=== PATIENT | male | born 1965 | race Caucasian/White ===

== ENCOUNTER 2016-11-12 13:21 | Emergency (ER) | payer BC ==
[2016-11-12 13:47] VITALS: BP 154/82
--- OUTSIDE RECORDS SUMMARY | 2016-11-12 13:56 | XMS REPORT | Continuity of Care Document ---
:1965 Author Organization [facility] ([facility]) Address [address] [place] [address] Phone [phone] Care Team Providers Name Role Phone Samaria Thapa Primary Care Provider [phone] Source Comments This disclosure is being made pursuant to the Care Everywhere program, applicable federal and state laws, and may not contain all informaitonavailable regarding this patient.[facility] ([facility]) Active Allergies and Adverse Reactions No Known Allergies Current Medications Prescription Sig. Disp. Refills Start Date End Date Status enalapril 20 mg tablet Take 2 tablets Active daily omeprazole 20 mg Take 20 mg by Active enteric coated capsule mouth daily warfarin 5 mg tablet Take 5 mg by Active mouth daily. omega-3 fatty acids 1 Take 2 g by mouth Active gram capsule 2 times daily. metoPROLol (TOPROL XL) Take 1 tablet 90 tablet 3 08/20/2016 Active succinate 200 mg XL (200 mg total) by tablet mouth daily. Active Problems Problem Noted Date Aortic stenosis 05/07/2015 Aortic insufficiency 05/07/2015 Paroxysmal atrial fibrillation 03/30/2015 Essential hypertension 03/30/2015 Most Recent Encounters Date Type Specialty Providers Description 08/20/2016 Refill Cardiac Rehabilitation Sunil Jara, Dx: Paroxysmal atrial MD fibrillation (Primary Dx) 08/20/2016 Refill Cardiac Rehabilitation Sunil Jara Dx: Paroxysmal atrial MD fibrillation (Primary Dx) Immunizations Name Dates Previously Given Next Due Influenza, unspecified 10/06/2006 Social History Tobacco Use Types Packs/Day Years Used Date Never Smoker Smokeless Tobacco: Former User Chew Quit: 02/08/2010 Alcohol Use Drinks/Week oz/Week Comments Yes 20 Cans of beer 0.0 25 Standard drinks or equivalent Last Filed Vital Signs Vital Sign Reading Time Taken Blood Pressure 143/81 07/08/2016 1:39 PM [employer] Pulse 57 07/08/2016 1:39 PM [employer] Temperature 36.2 C (97.16 F) 10/06/2006 7:50 AM [employer]ER Respiratory Rate - - Height 1.88 m (6' 2.02") 06/30/2016 12:00 PM [employer] Weight 114.76 kg (253 lb) 06/30/2016 12:00 PM [employer] Body Mass Index 32.47 06/30/2016 12:00 PM [employer] Oxygen Saturation 98% 02/13/2016 3:20 PM CDT Plan of Care Date Type Specialty Providers Description 01/10/2017 Appointment Heart and Vascular Joseph Arroyo MD [address] [place] [address] [phone] (Fax) Chief Comp: Patient Bart Goddard MD [address] [place] [address] [phone] (Fax) Reported Reason For Visit Health Maintenance Due Date Last Done Comments HCV Screening 1965 Hepatitis B Vaccine (1 of 3 - Primary Series) 1965 Tdap Vaccine 1974 MMR Vaccine 1981 Td Vaccine 1981 Lipid Disorder Screening 11/02/2007 11/01/2002 Colonoscopy 09/22/2013 Prostate Cancer Screening 2013 Influenza Vaccine: Seasonal (#1) 03/22/2016 10/06/2006 Results from Last 3 Months Not on file
[2016-11-12 14:13] LABS: Hematocrit 41.7 % (42.0-52.0); Hemoglobin 14.7 gm/dL (13.5-18.0); Mean Cell Volume 81.1 fl (78-100); Mean Corpuscular Hemoglobin 28.6 pg (27-31); Mean Corpuscular Hgb Conc 35.3 g/dl (32-36); Mean Platelet Volume 10.3 fl (6.0-9.5); Neutrophil # 3.1 K/mm3 (1.3-6.0); Neutrophil % 57.9 % (42-75.0); Platelet Count 136 K/mm3 (150-450); Red Blood Count 5.14 M/mm3 (4.7-6.0); Red Cell Distribution Width 12.7 % (11.5-14.0); White Blood Count 5.3 K/mm3 (4.0-10.5)
--- NOTE | 2016-11-12 14:23 | ERNOTE ---
Lower Extremity HPI - General Lower Extremities Pain: foot: right Time Seen by Provider: 11/12/16 13:32 Source: patient Exam Limitations: no limitations - Immun/Allergies/Home Medications Immunizations: IMMUNIZATION HX Immunizations Up to Date Yes History of Influenza Vaccine Yes Hx Pneumococcal Vaccination No Allergies/Adverse Reactions: Allergies Allergy/AdvReac Type Severity Reaction Status Date / Time No Known Allergies Allergy Verified 11/12/16 13:48 Home Medications: HOME MEDICATIONS Enalapril Maleate [Vasotec] 40 mg PO DAILY 10/10/12 [Last Taken 04/22/13 09:00] [place]-3 Fatty Acids [Fish Oil] 500 mg PO DAILY 02/06/13 [Last Taken 04/22/13 09: 00] Warfarin Sodium [Coumadin] 7.5 mg PO SUMOTUTHFRSA 05/19/16 [Last Taken Unknown] metFORMIN HCL [Glucophage] 500 mg PO BIDWM 05/19/16 [Last Taken Unknown] Apremilast [Otezla] 30 mg PO DAILY 11/12/16 [Last Taken Unknown] Aspirin [Aspirin EC] 81 mg PO DAILY 11/12/16 [Last Taken Unknown] Indomethacin [Indocin] 25 mg PO TID 11/12/16 [Last Taken Unknown] Metoprolol Succinate 200 mg PO DAILY 11/12/16 [Last Taken Unknown] Omeprazole Magnesium [Prilosec Otc] 20 mg PO DAILY 11/12/16 [Last Taken Unknown] Tamsulosin HCl [Flomax] 1 cap PO DAILY 11/12/16 [Last Taken Unknown] - History of Present Illness Narrative: Patient started to have pain in his right lateral foot six days ago. He denies any injury, the pain is minimal at rest, worse with weight bearing (5/10) worst after resting at night. He denies any injury or increase in activity. He has a history of gout and started himself back on his indomethacin five days ago with only minimal relieve. Pain is better when he is wearing his work boots, worse when wearing sandals or going barefoot He has episodes of atrial fibrillation, last one in April,was off coumadin since August, he started to have an episode five days ago that lasted about 30hours. He restarted his coumadin five days ago, has not had his INR checked since. He has a history of diabetes, lost 30lbs over the last year Date (Duration): 11/06/16 Method of Injury: Reports: no apparent injury Review of Systems - Review of Systems Constitutional: Absent: recent illness, fever, chills ENT: Present: nose congestion, nasal drainage. Absent: ear pain, sore throat, throat swelling Respiratory: Absent: shortness of breath, cough Cardiology: Absent: chest pain, palpitations Gastrointestinal/Abdominal: Absent: nausea, vomiting, abdominal pain Genitourinary: Absent: frequency, dysuria Musculoskeletal: Present: See HPI Skin: Present: See HPI Neurological: Absent: weakness, numbness - Patient's Past Medical History Patient History - Medical: No pertinent hx, Diabetes Type 2, Other - gout Patient History - Cardiac/Respiratory: Atrial Fibrillation, Hypertension Patient History - Cancer: No Hx of Cancer Patient History - Surgical Procedures: T & A Patient History - Other: None - Social History Living Situations: home Abuse History: No History of abuse Psych History: No pertinent hx Smoking Status: Never smoker Alcohol Use: occasionally - 4drinks per night Drug Use: none - Immunizations Immunizations Up to Date: Yes Hx Pneumococcal Vaccination: No History of Influenza Vaccine: Yes Physical Exam - Physical Exam General Appearance: Present: wd/wn, alert, no apparent distress Respiratory: Present: no respiratory distress, normal breath sounds, lungs clear Cardiovascular/Chest: Present: regular rate, rhythm, no murmur Peripheral Pulses: N=norm/S=strong/W=weak/B=bound/A=absent: Dorsalis-pedis (R): Normal, Dorsalis-pedis (L): Normal Extremity Exam: Present: normal except - - generalized swelling of foot, most prominent and erythema over lateral foot, slightly tender, no increased temp, normal toe, pedal edema, other - right leg edema, right calf circumference 2cm> left. Absent: calf tenderness Neurological Exam: Present: alert, oriented, normal mood/affect, no motor/ sensory deficits Skin Exam: Present: normal color, warm/dry ED Progress - Results and Orders Patient's Lab Results:: I have reviewed the patient's lab results. - Vital Signs Patient's Vital Signs:: I have reviewed the patient's vital signs. Vital Signs: Vital Signs 11/12/16 13:33 Temperature 36.7 C Pulse Rate 57 L Respiratory 16 Rate Blood Pressure 154/82 O2 Sat by Pulse 96 Oximetry - X-Ray X-Ray #1 X-Ray: foot - no acute bony injury Interpretation: Reviewed by me - CT/Ultrasound CT/Ultrasound Narrative: U/S: no DVT, blandon's cust - Progress/Reassessment Progress Note-Subjective: 11/12/16 15:11 explained results to patient, will get doppler to evaluate for DVT as patient just started cumadin a few days ago 11/12/16 16:05 discussed results with patients, gout unlikely, no obvious fracture, consider occult fracture,offered pain medication patient will continue with over the counter meds (discussed to not take NSAIDs with coumadin) feels better with wearing supportive shoes 11/12/16 16:10 call to ortho clinic, francis Departure Clinical Impression: Foot pain, right Atrial fibrillation Qualifiers: Atrial fibrillation type: paroxysmal Qualified Code(s): I48.0 - Paroxysmal atrial fibrillation Blandon's cyst Qualifiers: Laterality: right Qualified Code(s): M71.21 - Synovial cyst of popliteal space [Blandon], right knee - Departure Disposition: Home self-care Condition: Good Instructions: Foot Sprain Referrals: Samaria Thapa MD [Primary Care Provider] - Ramakrishna Ramachandran PAC [[facility]] - 11/18/16 9:15 am
[2016-11-12 14:28] LABS: Albumin * 3.6 gm/dl (3.4-5.0); Anion Gap 13.7 mmol/L (6.8-13.8); BUN/Creatinine Ratio 16.5 (9.0-21.6); Bilirubin, Total 0.3 mg/dL (0.0-1.1); Ca. Corrected For Albumin 8.9 mg/dL (8.4-10.2); Calcium * 8.9 mg/dL (7.9-10.9); Carbon Dioxide 26.2 mmol/L (24-32.6); Potassium 3.9 mmol/L (3.4-4.6); Total Protein 7.5 gm/dL (6.2-8.2)
[2016-11-12 14:31] LABS: Prothrombin Time (Patient) 25.9 Seconds (9.4-11.4)
[2016-11-12 14:32] LABS: INR 2.49 INR (0.90-1.10)
== END 2016-11-12 16:17 | disposition home or self-care (01) ==
LOC: ER 13:21
DX: M71.21 Synovial cyst of popliteal space [Baker], right knee (principal); M79.671 Pain in right foot; I48.0 Paroxysmal atrial fibrillation; Z79.01 Long term (current) use of anticoagulants; E11.9 Type 2 diabetes mellitus without complications; I10 Essential (primary) hypertension

== ENCOUNTER 2017-01-21 10:05 | Inpatient (IN) | payer BC ==
--- OUTSIDE RECORDS SUMMARY | 2017-01-21 10:11 | XMS REPORT | Continuity of Care Document ---
:1965 Author Organization [facility] ([facility]) Address [address] [place] [address] Phone [phone] Care Team Providers Name Role Phone Samaria Thapa Primary Care Provider [phone] Source Comments This disclosure is being made pursuant to the Care Everywhere program, applicable federal and state laws, and may not contain all informaitonavailable regarding this patient.[facility] ([facility]) Active Allergies and Adverse Reactions No Known [...] (200 mg total) by tablet mouth daily. metoPROLol tartrate Take 1 tablet 180 tablet 3 01/11/2017 Active 100 mg tablet (100 mg total) by mouth 2 times daily. Active Problems Problem Noted Date Aortic stenosis 05/07/2015 Aortic insufficiency 05/07/2015 Paroxysmal atrial fibrillation 03/30/2015 Essential hypertension 03/30/2015 Most Recent Encounters Date Type Specialty Providers Description 01/10/2017 Office Visit Heart and Vascular Joseph Arroyo MD Dx: Paroxysmal atrial Bart Goddard MD fibrillation (Primary Dx) 01/07/2017 Telephone Heart and Vascular Inna Odell Immunizations Name Dates Previously Given Next Due Influenza, unspecified 10/06/2006 Social History Tobacco Use Types Packs/Day Years Used Date Never Smoker Smokeless Tobacco: Former User Chew Quit: 02/08/2010 Alcohol Use Drinks/Week oz/Week Comments Yes 20 Cans of beer 0.0 25 Standard drinks or equivalent Last Filed Vital Signs Vital Sign Reading Time Taken Blood Pressure 143/79 01/10/2017 1:25 PM CDT Pulse 53 01/10/2017 1:25 PM CDT Temperature 36.8 C (98.2 F) 01/10/2017 1:25 PM CDT Respiratory Rate 16 01/10/2017 1:25 PM CDT Height 1.88 m (6' 2.02") 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 Weight 109.3 kg (240 lb 15.4 oz) 01/10/2017 1:25 PM CDT Body Mass Index 30.92 01/10/2017 1:25 PM CDT Oxygen Saturation 98% 01/10/2017 1:25 PM CDT Plan of Care Date Type Specialty Providers Description 07/18/2017 Appointment Heart and Vascular Bart Goddard MD Chief Comp: Patient [address] [place] [address] Visit [phone] (Fax) Health Maintenance Due Date Last Done Comments HCV Screening 1965 Hepatitis B Vaccine (1 of 3 - Primary Series) 1965 Tdap Vaccine 1974 MMR Vaccine 1981 Td Vaccine 1981 Lipid Disorder Screening 11/02/2007 11/01/2002 Colonoscopy 09/22/2013 Prostate Cancer Screening 2013 Influenza Vaccine: Seasonal (Season Ended) 2017 10/06/2006 Results from Last 3 Months ECG - EKG 12 LEAD (01/10/2017 1:29 PM) Component Value Range ECG SEVERITY - ABNORMAL ECG - VENT. RATE 51 bpm RR 1176 ms P-R INTERVAL 172 ms QRSD INTERVAL 114 ms QT INTERVAL 444 ms QTC INTERVAL 409 ms P AXIS 22 degrees QRS AXIS 7 degrees T WAVE AXIS 23 degrees REPORT SINUS RHYTHM [Remains] NONSPECIFIC INTRAVENTRICULAR CONDUCTION DELAY [Insig. Chg.] NO SIGNIFICANT CHANGE MINIMAL ST ELEVATION, ANTERIOR LEADS [Remains] [Now Absent] PROBABLE LATERAL INFARCT, OLD Interpreting Physician: Angel Key MD
[2017-01-21 10:28] LABS: Hematocrit 43.4 % (42.0-52.0); Hemoglobin 15.2 gm/dL (13.5-18.0); Mean Cell Volume 81.6 fl (78-100); Mean Corpuscular Hemoglobin 28.6 pg (27-31); Mean Platelet Volume 10.2 fl (6.0-9.5); Neutrophil # 7.9 K/mm3 (1.3-6.0); Platelet Count 140 K/mm3 (150-450); Red Blood Count 5.32 M/mm3 (4.7-6.0); Red Cell Distribution Width 13.6 % (11.5-14.0); White Blood Count 10.2 K/mm3 (4.0-10.5)
[2017-01-21] MEDS ORDERED: VANCOMYCIN HCL 1 GM in DEXTROSE 5 % IN WATER 250 ML IV SCH ×2 (10:30)
[2017-01-21 10:42] LABS: Albumin * 3.7 gm/dl (3.4-5.0); Anion Gap 14.4 mmol/L (6.8-13.8); BUN/Creatinine Ratio 17.5 (9.0-21.6); Bilirubin, Total 1.2 mg/dL (0.0-1.1); CRP 7.7 mg/dL (0.0-0.9); Ca. Corrected For Albumin 9.4 mg/dL (8.4-10.2); Calcium * 9.5 mg/dL (7.9-10.9); Carbon Dioxide 26.2 mmol/L (24-32.6); INR 3.65 INR (0.90-1.10); Potassium 4.6 mmol/L (3.4-4.6); Total Protein 7.8 gm/dL (6.2-8.2); Uric Acid 6.7 mg/dL (2.6-7.2)
[2017-01-21] MEDS ORDERED: COLCHICINE 0.6 MG TABLET PO ONE ×2 (11:30→12:30)
--- NOTE | 2017-01-21 12:11 | CONS ---
- Reason for consultation (1) Foot pain, right Date of Service: 01/21/17 HPI - General Date of Service: 01/21/17 Narrative: 51-year-old male presents with complaints of increasing pain and swelling redness to his right foot as well as pain into his right knee. Patient has been seen in the past with history of cellulitis to his right foot. He tried on 2-3 different oral antibiotics with minimal effectiveness. Patient states that his pain became much worse into his right foot to the point where "even a sheet touching it hurt". Patient has a known history of gout however states that he has not had problems with this for a lengthy period of time. He does not take any sort of uric acid medication. Services please had a flare in the past he has taken indomethacin with good relief. Patient states his right knee began hurting. A diffuse pain. He has pain with range of motion. Denies any specific injury to his right knee. Slight effusion. Patient denies known fever chills. No history of injury to his right foot. He reports he is currently on anticoagulant therapy so is unable to take NSAIDs. He states it while he is on the oral antibiotics he will have some mild decrease in the pain however he states the pain has never gone completely away as well as he is no increasing and persistent redness. Returns for increasing cellulitis was admitted for observation and IV antibiotics per Dr. Clinton. - History of Present Illness Allergies/Adverse Reactions: Allergies No Known Allergies Allergy (Verified 11/12/16 13:48) Home Medications: Home Medications Medication Instructions Recorded Last Taken Enalapril Maleate [Vasotec] 40 mg PO DAILY 10/10/12 04/22/13 09:00 [place]-3 Fatty Acids [Fish Oil] 500 mg PO DAILY 02/06/13 04/22/13 09:00 Warfarin Sodium [Coumadin] 7.5 mg PO SUMOTUTHFRSA 05/19/16 Unknown metFORMIN HCL [Glucophage] 500 mg PO BIDWM 05/19/16 Unknown Apremilast [Otezla] 30 mg PO DAILY 11/12/16 Unknown Aspirin [Aspirin EC] 81 mg PO DAILY 11/12/16 Unknown Indomethacin [Indocin] 25 mg PO TID 11/12/16 Unknown Metoprolol Succinate 200 mg PO DAILY 11/12/16 Unknown Omeprazole Magnesium [Prilosec Otc] 20 mg PO DAILY 11/12/16 Unknown Tamsulosin HCl [Flomax] 1 cap PO DAILY 11/12/16 Unknown - Patient's Past Medical History Patient History - Medical: No pertinent hx, Diabetes Type 2, Other Patient History - Cardiac/Respiratory: Atrial Fibrillation, Hypertension Patient History - Cancer: No Hx of Cancer Patient History - Surgical Procedures: T & A Patient History - Other: None - Social History Living Situations: home Abuse History: No History of abuse Psych History: No pertinent hx Alcohol Use: occasionally Drug Use: none - Immunizations Immunizations Up to Date: Yes Hx Pneumococcal Vaccination: No History of Influenza Vaccine: Yes Procedures COLONOSCOPY (10/26/05) LINEAR REP LID LACER (09/30/01) Physical Examination - Exam Narrative: Examination today of the right foot reveals very diffuse redness noted. There is no localizing areas of redness no areas of fluctuance noted. There is increasing redness noted about the first MTP joint she has increasing pain with movement of this joint. She does have diffuse tenderness to palpation about the entire ankle. Not appreciate any ascending lymphangitis. Good dorsalis pedis posterior tibial pulse and has normal light touch sensation. I do not see any open sores or wounds to the right foot or ankle. There is no evidence of skin breakdown Examination today of the right knee reveals no erythema, no effusion, was tenderness to palpation. Patient has pain with any palpation to the knee patient has pain with any range of motion to the knee. His calf is soft nontender. Homans is negative due to pain to the knee was unable to complete any additional testing due to the patient guarding with motion. Vital Signs: Vital Signs - Last Taken Temp 36.7 C 11/12/16 16:22 Pulse Resp BP 154/82 11/12/16 16:22 Pulse Ox - Results and Findings: Lab/Microbiology results last 24 hrs: Abnormal/Pending Laboratory Last 24 HRS 01/21/17 01/21/17 01/21/17 10:20 10:20 10:20 Plt Count 140 L MPV 10.2 H Immature Gran % (Auto) 0.50 H Immature Gran # (Auto) 0.05 H Neutrophils % 77.0 H Lymphocytes % 13.1 L Neutrophils # 7.9 H Lymphocytes # 1.3 L ESR 17 H PT INR (Anticoag Therapy) Chloride 96 L Anion Gap 14.4 H Random Glucose 122 H Total Bilirubin 1.2 H C-Reactive Prot, Quant 7.7 H 01/21/17 10:20 Plt Count MPV Immature Gran % (Auto) Immature Gran # (Auto) Neutrophils % Lymphocytes % Neutrophils # Lymphocytes # ESR PT 38.0 H INR (Anticoag Therapy) 3.65 H Chloride Anion Gap Random Glucose Total Bilirubin C-Reactive Prot, Quant - Assessments/Findings (1) Foot pain, right Diagnosis(s): Concern for cellulitis versus gout. I would also have concern for his right knee being consistent with a gout flare. His uric acid level is normal however his history and exam is consistent with a gout flare. Dr. Jojo Laguerre is managing the patient with IV antibiotics he advised me that he will be starting colchicine since the patient is unable to take NSAIDs during his anticoagulation we will see how patient responds to this treatment. Be available for additional help as needed Problem: Acute
[2017-01-21] MEDS: MEROPENEM 1 GM in NORMAL SALINE 100 ML IV SCH ×2 (13:29→18:45)
[2017-01-21] MEDS: traMADol HCL 50 MG TABLET PO PRN (13:32)
[2017-01-21] MEDS ORDERED: MORPHINE SULFATE 10 MG/ML SYRG IV PRN (13:37)
[2017-01-21] MEDS: VANCOMYCIN HCL 2 GM in DEXTROSE 5 % IN WATER 500 ML IV SCH ×2 (13:59)
[2017-01-21] MEDS ORDERED: BELLADONNA ALKALOIDS/PHENOBARB 60 ML BTL PO ONE (17:19)
[2017-01-21] MEDS ORDERED: MAG HYDROX/ALUMINUM HYD/SIMETH 30 ML UDC PO ONE (17:19)
[2017-01-21] MEDS ORDERED: LIDOCAINE HCL 20 ML UDC PO ONE (17:19)
[2017-01-21] MEDS: metFORMIN HCL 500 MG TABLET PO SCH (17:33)
[2017-01-21] MEDS: TAMSULOSIN HCL 0.4 MG CAP.SR.24H PO SCH (17:53)
[2017-01-21 17:58] LABS: CK Total * 99 U/L (0-259); CKMB 0.6 ng/mL (0.0-9.0); Troponin I Less than 0.017 ng/ml (0.00-0.10)
[2017-01-22] MEDS: VANCOMYCIN HCL 2 GM in DEXTROSE 5 % IN WATER 500 ML IV SCH ×4 (01:20→12:33)
[2017-01-22] MEDS: MEROPENEM 1 GM in NORMAL SALINE 100 ML IV SCH ×2 (03:27→11:01)
[2017-01-22 05:41] LABS: Hemoglobin 14.6 gm/dL (13.5-18.0); Mean Cell Volume 82.2 fl (78-100); Mean Corpuscular Hemoglobin 28.6 pg (27-31); Mean Corpuscular Hgb Conc 34.8 g/dl (32-36); Mean Platelet Volume 10.5 fl (6.0-9.5); Neutrophil # 5.5 K/mm3 (1.3-6.0); Neutrophil % 65.2 % (42-75.0); Platelet Count 123 K/mm3 (150-450); Red Blood Count 5.11 M/mm3 (4.7-6.0); Red Cell Distribution Width 13.3 % (11.5-14.0); White Blood Count 8.4 K/mm3 (4.0-10.5)
[2017-01-22 05:50] LABS: Prothrombin Time (Patient) 29.8 Seconds (9.4-11.4)
[2017-01-22 05:52] LABS: Anion Gap 12.6 mmol/L (6.8-13.8); BUN/Creatinine Ratio 14.3 (9.0-21.6); Calcium * 9.2 mg/dL (7.9-10.9); Carbon Dioxide 28.4 mmol/L (24-32.6); Estimated Creat Clear 101.4
[2017-01-22 05:54] LABS: INR 2.87 INR (0.90-1.10)
[2017-01-22] MEDS: traMADol HCL 50 MG TABLET PO PRN ×2 (06:53→17:16)
[2017-01-22] MEDS ORDERED: PANTOPRAZOLE SODIUM 20 MG TABLET.DR PO SCH (07:00)
[2017-01-22] MEDS: metFORMIN HCL 500 MG TABLET PO SCH (08:25)
[2017-01-22] MEDS: COLCHICINE 0.6 MG TABLET PO SCH (08:25)
[2017-01-22] MEDS: ENALAPRIL MALEATE 20 MG TABLET PO SCH (08:26)
[2017-01-22] MEDS ORDERED: METOPROLOL SUCCINATE 100 MG TABLET.SA PO SCH (09:00)
--- NOTE | 2017-01-22 10:16 | PN ---
Progess Note - Interim Narrative: 01/22/17 10:08 Patient complaining of worsening R knee pain today. States that his lateral foot and knee hurt the most. He denies ankle pain at this time. Denies fevers/ chills. Exam: MSK: RLE--> tense effusion of knee, extremely tender to touch diffusely, pain with passive motion, no significant warmth or erythema appreciated, diffuse swelling and erythema of the lateral forefoot, swelling extending up around ankle, tender to touch over 4th and 5th metatarsals, no tenderness about ankle, no pain with passive motion of ankle, SILT, cap refill brisk Imaging: MRI of foot and ankle reviewed, which demonstrates diffuse soft tissue edema as well bony edema of the 4th and 5th metatarsals, consistent with severe cellulitis, possible early osteomyelitis but not convinced, effusion and edema of 1st MTP joint Assessment: Patient's exam and imaging of his foot and ankle are consistent with severe cellulitis. I'm not convinced that the bony edema is osteomyelitis but more likely reactive edema from the surrounding cellulitis. He does have an ankle effusion, but has no pain with ankle motion. The patient has a very painful, tense effusion of the R knee which is concerning for gouty flare vs septic arthritis. In summary, the patient has significant cellulitis of the foot. His multiple joint effusions are concerning for possible concomitant gout flare vs septic arthritis. Plan: - We will proceed with aspiration of the knee and ankle to rule out septic arthritis. Will send for cell count, gram stain, cultures, and crystal analysis. Patient has already been started on abx, so cultures may not grow anything. - Recommend continued medical treatment with IV abx for R foot cellulitis and possible osteomyelitis of the 4th and 5th metatarsals.
[2017-01-22] MEDS: LACTOBACILLUS ACIDOPHILUS 100 CAP BTL PO SCH ×2 (11:00→20:35)
[2017-01-22 12:13] LABS: Body Fluid Appearance BLOODY (CLEAR); Body Fluid Color RED (COLORLESS)
[2017-01-22 12:14] LABS: Body Fluid WBC 46970 /uL (0-1000)
[2017-01-22 12:17] LABS: Body Fluid Appearance CLEAR (CLEAR); Body Fluid Color PALE YELLOW (COLORLESS); Body Fluid WBC 4510 /uL (0-1000)
--- NOTE | 2017-01-22 12:49 | PN ---
Subjective - Date and Time Seen Date: 01/22/17 Time: 08:15 Subjective Narrative: Patient seen and examined at bedside. No acute issues overnight. Patient admits to improved swelling in his right foot and he also admits that the pain in his right foot has improved as well. The patient's biggest complaint this morning is of right knee pain. No BM since admission. Objective - Review of Systems Generalized/Overall Review: Reports: No Symptoms Reported. Denies: Chills, Fever EENTM: Reports: No Symptoms Reported Respiratory: Reports: No Symptoms Reported Cardiac: Reports: No Symptoms Reported Abdominal: Reports: Other - heartburn, constipation Genitourinary Symptoms: Reports: No Symptoms Reported Musculoskeletal Complaints: Reports: Joint Pain, Joint Swelling Neurological: Reports: No Symptoms Reported Skin: Reports: No Symptoms Reported Endocrine: Reports: No Symptoms Reported Misc: All systems neg except as marked - Vitals Vitals: Last Vital Signs Temp 37.1 C 01/22/17 11:08 Pulse 55 L 01/22/17 11:08 Resp 14 01/22/17 11:08 BP 121/62 01/22/17 11:08 Pulse Ox 97 01/22/17 11:08 - Abnormal Lab Findings Abnormal Lab Findings: Abnormal Lab Results 01/21/17 01/22/17 01/22/17 Range/Units 10:20 05:35 05:35 Plt Count 123 L (150-450) K/mm3 MPV 10.5 H (6.0-9.5) fl Lymphocytes % 19.2 L (20-51) % Monocytes % 13.1 H (0.0-9) % Monocytes # 1.1 H (0.0-1.0) k/mm3 PT 38.0 H 29.8 H (9.4-11.4) Seconds INR (Anticoag Therapy) 3.65 H 2.87 H (0.90-1.10) INR Random Glucose (70-110) mg/dL Fluid WBC (0-1000) /uL 01/22/17 01/22/17 01/22/17 Range/Units 05:35 10:43 10:44 Plt Count (150-450) K/mm3 MPV (6.0-9.5) fl Lymphocytes % (20-51) % Monocytes % (0.0-9) % Monocytes # (0.0-1.0) k/mm3 PT (9.4-11.4) Seconds INR (Anticoag Therapy) (0.90-1.10) INR Random Glucose 116 H (70-110) mg/dL Fluid WBC 4510 H 43056 H (0-1000) /uL - Exam Constitutional: Present: Alert, Oriented x3, Cooperative, Well developed, Well nourished, No distress ENT Exam: Present: hearing grossly normal, moist mucous membranes Respiratory: Present: lungs clear, normal breath sounds, no respiratory distress , no accessory muscle use Cardiovascular/Chest: Present: regular rate, rhythm, no murmur Abdomen: Present: soft, nontender, nondistended, hypoactive Extremity: Present: other - Right knee: effusion present, no errythema, TTP, decreased ROM secondary to pain. Right leg and foot: edema, errythema, TTP ( especially over lateral aspect of foot), no open wounds, no active drainage Skin Exam: Present: no cyanosis, other - Mild erythema of right foot and lower leg Neurologic: Present: no motor/sensory deficits, alert, normal mood/affect, oriented x 3 Appearance: Present: appropriate appearance, appropriate insight, neat, no memory impairment Eye contact: Present: cooperative, good eye contact, normal speech Thoughts: Present: normal thought pattern, no apparent hallucination Assessment/Plan Plan Narrative: Impression & Plan: Right lower extremity cellulitis -Ortho consulted and following. Appreciate their input and recommendations. Case discussed with Dr. Yancey this morning and I discussed whether or not he would feel a joint aspiration is indicated in an attempt to help identify the true etiology- gout vs. pseudogout vs. septic arthritis. Dr. Yancey will come and evaluate the patient. -For now, continue current IV antibiotics. Await Dr. Jimenez input. Hopefully we can quickly de-escalate the antibiotics within the next 1-2 days. -Blood cultures X 2 NGTD -Start probiotic CHRONIC MEDICAL CONDITIONS: Essential hypertension: Goal blood pressure less than 140/90mmHg. Blood pressure currently well controlled. Continue home medications of Enalapril and Metoprolol Paroxysmal atrial fibrillation: Currently in normal sinus rhythm. Continue metoprolol for rate control. Continue warfarin; goal INR 2-3 with pharmacy to dose. Based on clinic records, it appears that heavy alcohol use has been a significant trigger in the past. He has decreased his alcohol consumption and he has not had any known episodes of atrial fibrillation since October 2016. The patient was seen by an EP sales account leader on 01/10/2017 and after reviewing this office note, the patient had been changed from metoprolol succinate 200 mg daily to 100 mg BID due to the patients complaint of fatigue. I have adjusted his inpatient medication order to reflect this change. The patients CHADS2 Score is 1 (HTN=1); patient can likely be appropriately treated with daily aspirin. However, I will defer to the patients PCP and sales account leader to determine whether or not they feel this is suitable. Prediabetes/impaired fasting glucose: Patient on metformin at home however he states that he has lost approximately 40 pounds since being diagnosed with prediabetes and he does not feel the metformin is likely necessary any more. Hold metformin while inpatient. I recommended that the patient have further discussion with his primary care physician as an outpatient to determine whether he needs to remain on metformin or not. Most recent A1c on 09/02/2016 was 5.7% (decreased from 6.1% on 04/28/2016). Thrombocytopenia: Chronic with a baseline platelet count around 130. Most likely secondary to history of heavy alcohol use. BPH: Continue home medication Flomax GERD: Continue home PPI VTE prophylaxis: Patient is currently therapeutic on Coumadin with pharmacy dosing. GI prophylaxis: Continue home PPI Code Status: Full code - Problems/Diagnosis (1) Cellulitis of right lower leg Problem: Acute (2) Effusion of right knee Problem: Acute (3) Cellulitis of right foot Problem: Acute (4) Osteomyelitis of foot, right, acute Problem: Suspected (5) Septic arthritis of knee, right Problem: Suspected (6) Gout flare Problem: Suspected Qualifiers: Gout site: knee Laterality: right (7) PAF (paroxysmal atrial fibrillation) Problem: Chronic (8) Essential hypertension Problem: Chronic (9) Impaired fasting glucose Problem: Chronic (10) Prediabetes Problem: Chronic (11) Thrombocytopenia Problem: Chronic (12) BPH (benign prostatic hyperplasia) Problem: Chronic (13) GERD (gastroesophageal reflux disease) Problem: Chronic
[2017-01-22] MEDS: SENNOSIDES/DOCUSATE SODIUM 1 TAB TABLET PO SCH ×2 (13:12→17:05)
--- NOTE | 2017-01-22 13:20 | PN ---
Progess Note - Interim Narrative: 01/22/17 13:19 Joint aspiration of the right knee and of the right ankle completed earlier today by Dr. Yancey. Synovial fluid from the right ankle appears to be most consistent with an inflammatory process. Synovial fluid from the right knee is concerning for possible septic arthritis [given markedly elevated white blood cell count (although not greater than 50,000) and 85% polys] vs. inflammatory process. Gram stain, culture and crystal analysis pending. I called the laboratory to make sure that a crystal analysis of the fluid would be completed. I was informed that we do not do crystal analysis here at [facility] and that the fluid would be sent to the [facility] on Tuesday for analysis. I felt that this is unacceptable and a crystal analysis needed to be completed JOSETTE as the results would significantly impact our treatment plan. I spoke multiple times with Lorraine (?sp) in our laboratory and I greatly appreciate everything she did to make sure we got these results. She ended up making arrangements for the fluid to be taken directly to [facility] today for crystal analysis. 01/22/17 13:21
[2017-01-22] MEDS: WARFARIN SODIUM 7.5 MG TABLET PO SCH (17:04)
[2017-01-22] MEDS: TAMSULOSIN HCL 0.4 MG CAP.SR.24H PO SCH (17:06)
--- NOTE | 2017-01-22 22:58 | PN ---
Progess Note - Interim Narrative: 01/22/17 22:50 Cell counts and gram stain results reviewed. Cell count for R ankle is not concerning for infection. Cell count for R knee is borderline, but appearance of fluid and prior history of gouty attack are consistent with potential gouty flare. Fluid sent out for crystal analysis, still awaiting the report on those results. I am unsure what to make of the positive gram stains of both samples. My concern is that this represents a contaminant as the ankle fluid was completely normal in appearance and the cell count is not consistent with infection. If the crystal analysis comes back negative, we may need to proceed with I&D of the R knee given the clinical exam and borderline cell count results. We will make a decision once the crystal results come back.
[2017-01-23] MEDS: VANCOMYCIN HCL 2 GM in DEXTROSE 5 % IN WATER 500 ML IV SCH ×4 (00:56→13:02)
[2017-01-23 05:27] LABS: Hematocrit 41.8 % (42.0-52.0); Hemoglobin 14.5 gm/dL (13.5-18.0); Mean Cell Volume 82.9 fl (78-100); Mean Corpuscular Hemoglobin 28.8 pg (27-31); Mean Corpuscular Hgb Conc 34.7 g/dl (32-36); Mean Platelet Volume 10.7 fl (6.0-9.5); Neutrophil # 3.6 K/mm3 (1.3-6.0); Neutrophil % 55.7 % (42-75.0); Platelet Count 131 K/mm3 (150-450); Red Blood Count 5.04 M/mm3 (4.7-6.0); Red Cell Distribution Width 13.5 % (11.5-14.0); White Blood Count 6.4 K/mm3 (4.0-10.5)
[2017-01-23] MEDS: traMADol HCL 50 MG TABLET PO PRN (05:42)
[2017-01-23 05:43] LABS: Anion Gap 11.6 mmol/L (6.8-13.8); BUN/Creatinine Ratio 15.6 (9.0-21.6); Carbon Dioxide 28.4 mmol/L (24-32.6); Estimated Creat Clear 110.4; Prothrombin Time (Patient) 16.7 Seconds (9.4-11.4)
[2017-01-23 05:50] LABS: INR 1.61 INR (0.90-1.10)
[2017-01-23] MEDS: PANTOPRAZOLE SODIUM 40 MG TABLET.EC PO SCH (06:23)
[2017-01-23] MEDS ORDERED: SENNOSIDES/DOCUSATE SODIUM 1 TAB TABLET PO PRN (07:25)
[2017-01-23] MEDS: ENOXAPARIN SODIUM 40 MG/0.4 ML SYRG SC SCH (07:56)
--- NOTE | 2017-01-23 08:13 | PN ---
Subjective - Date and Time Seen Date: 01/23/17 Time: 08:08 Subjective Narrative: Patient seen and examined at bedside. No acute issues overnight. Patient admits to ongoing improvement of the swelling, redness and pain in his right foot. He also admits that his knee feels much better this AM and he is actually able to bend it today which he wasn't able to do yesterday secondary to severe pain. Objective - Review of Systems Generalized/Overall Review: Reports: No Symptoms Reported EENTM: Reports: No Symptoms Reported Respiratory: Reports: No Symptoms Reported Cardiac: Reports: No Symptoms Reported Abdominal: Reports: No Symptoms Reported Genitourinary Symptoms: Reports: No Symptoms Reported Musculoskeletal Complaints: Reports: Joint Pain Neurological: Reports: No Symptoms Reported Skin: Reports: No Symptoms Reported Endocrine: Reports: No Symptoms Reported Misc: All systems neg except as marked - Vitals Vitals: Last Vital Signs Temp 36.6 C 01/23/17 06:13 Pulse 49 L 01/23/17 06:13 Resp 20 01/23/17 06:13 BP 116/62 01/23/17 06:13 Pulse Ox 96 01/23/17 06:13 - Abnormal Lab Findings Abnormal Lab Findings: Abnormal Lab Results 01/22/17 01/22/17 01/22/17 Range/Units 10:43 10:44 10:50 Hct (42.0-52.0) % Plt Count (150-450) K/mm3 MPV (6.0-9.5) fl Immature Gran % (Auto) (0.001-0.429) % Monocytes % (0.0-9) % Eosinophils % (0.0-3.0) % Basophils % (0.0-1.0) % PT (9.4-11.4) Seconds INR (Anticoag Therapy) (0.90-1.10) INR Random Glucose (70-110) mg/dL Fluid WBC 4510 H 85475 H (0-1000) /uL Synovial Crystals Uric acid crystals H (NO CRYSTALS) 01/23/17 01/23/17 01/23/17 Range/Units 05:20 05:20 05:20 Hct 41.8 L (42.0-52.0) % Plt Count 131 L (150-450) K/mm3 MPV 10.7 H (6.0-9.5) fl Immature Gran % (Auto) 0.50 H (0.001-0.429) % Monocytes % 15.5 H (0.0-9) % Eosinophils % 3.6 H (0.0-3.0) % Basophils % 1.3 H (0.0-1.0) % PT 16.7 H (9.4-11.4) Seconds INR (Anticoag Therapy) 1.61 H (0.90-1.10) INR Random Glucose 111 H (70-110) mg/dL Fluid WBC (0-1000) /uL Synovial Crystals (NO CRYSTALS) - Exam Constitutional: Present: Alert, Oriented x3, Cooperative, Well developed, Well nourished, No distress ENT Exam: Present: hearing grossly normal, moist mucous membranes Respiratory: Present: lungs clear, normal breath sounds, no respiratory distress , no accessory muscle use Cardiovascular/Chest: Present: regular rate, rhythm, no murmur Abdomen: Present: soft, nontender, nondistended, hypoactive Extremity: Present: other - Right knee: Effusion present but improved from yesterday, no erythema, no increased warmth, tenderness to palpation present and decreased range of motion secondary to pain. Right lower leg and foot: There is still some mild edema and erythema present especially over the lateral aspect of the foot; however, this has also improved over the last 24 hours. He continues to have mild tenderness to palpation over the later aspect. No open wounds, no active drainage. Skin Exam: Present: no cyanosis Neurologic: Present: no motor/sensory deficits, alert, normal mood/affect, oriented x 3 Appearance: Present: appropriate appearance, appropriate insight, neat, no memory impairment Eye contact: Present: cooperative, good eye contact, normal speech Thoughts: Present: normal thought pattern, no apparent hallucination Assessment/Plan Plan Narrative: Impression & Plan: Right lower extremity cellulitis -Ortho consulted and following. Appreciate their input and recommendations. Joint aspiration of the right knee and of the right ankle was completed by Dr. Bess on 01/22/2017. -Right Ankle Aspiration: Fluid analysis is consistent with an inflammatory process and not infection despite the positive Gram stain for gram- positive cocci which likely is a contaminant. Preliminary culture with no growth. -Right Knee Aspiration: Borderline cell count however crystal analysis confirmed monosodium urate crystals consistent with gout. Gram stain positive for gram-positive cocci however this may also represent a contaminant. Preliminary culture with no growth. -Gram stain of the fluid from both the ankle and the knee are growing gram positive cocci and thus Merropenem was discontinued on 01/22/2017. Continue IV vancomycin for now. -Blood cultures X 2 NGTD -Continue probiotic Gout of Right Knee -Patient unable to take NSAIDs secondary to increased bleeding risk while on Coumadin for A. fib. Continue colchicine for now. Per Dr. Yancey, he will discuss a possible intra-articular steroid injection with the patient. CHRONIC MEDICAL CONDITIONS: Essential hypertension: Goal blood pressure less than 140/90mmHg. Blood pressure currently well controlled. Continue home medications of Enalapril and Metoprolol Paroxysmal atrial fibrillation: Currently in normal sinus rhythm. Continue metoprolol for rate control. Continue warfarin; goal INR 2-3 with pharmacy to dose. Based on clinic records, it appears that heavy alcohol use has been a significant trigger in the past. He has decreased his alcohol consumption and he has not had any known episodes of atrial fibrillation since October 2016. The patient was seen by an EP ornamental machine operator on 01/10/2017 and after reviewing this office note, the patient had been changed from metoprolol succinate 200 mg daily to 100 mg BID due to the patients complaint of fatigue. I have adjusted his inpatient medication order to reflect this change. The patients CHADS2 Score is 1 (HTN=1); patient can likely be appropriately treated with daily aspirin. However, I will defer to the patients PCP and ornamental machine operator to determine whether or not they feel this is suitable. Prediabetes/impaired fasting glucose: Patient on metformin at home however he states that he has lost approximately 40 pounds since being diagnosed with prediabetes and he does not feel the metformin is likely necessary any more. Hold metformin while inpatient. I recommended that the patient have further discussion with his primary care physician as an outpatient to determine whether he needs to remain on metformin or not. Most recent A1c on 09/02/2016 was 5.7% (decreased from 6.1% on 04/28/2016). Thrombocytopenia: Chronic with a baseline platelet count around 130. Most likely secondary to history of heavy alcohol use. BPH: Continue home medication Flomax GERD: Continue home PPI VTE prophylaxis: Patient now subtherapeutic on Coumadin; start lovenox for VTE ppx and continue until INR is therapeutic between 2-3. Pharmacy dosing coumadin. GI prophylaxis: Continue home PPI Code Status: Full code - Problems/Diagnosis (1) Cellulitis of right foot Problem: Acute (2) Cellulitis of right lower leg Problem: Acute (3) Gout flare Problem: Acute Qualifiers: Gout site: knee Laterality: right (4) Effusion of right knee Problem: Acute (5) Osteomyelitis of foot, right, acute Problem: Suspected (6) PAF (paroxysmal atrial fibrillation) Problem: Chronic (7) Essential hypertension Problem: Chronic (8) Impaired fasting glucose Problem: Chronic (9) Prediabetes Problem: Chronic (10) Thrombocytopenia Problem: Chronic (11) BPH (benign prostatic hyperplasia) Problem: Chronic (12) GERD (gastroesophageal reflux disease) Problem: Chronic
[2017-01-23] MEDS: LACTOBACILLUS ACIDOPHILUS 100 CAP BTL PO SCH ×2 (08:35→20:59)
[2017-01-23] MEDS: COLCHICINE 0.6 MG TABLET PO SCH (08:36)
[2017-01-23] MEDS: ENALAPRIL MALEATE 20 MG TABLET PO SCH (08:36)
[2017-01-23] MEDS: METOPROLOL SUCCINATE 100 MG TABLET.SA PO SCH ×2 (08:37→20:59)
--- NOTE | 2017-01-23 09:56 | PN ---
Subjective - Date and Time Seen Date: 01/23/17 Subjective Narrative: Patient states that knee pain is much improved today as well as the pain in his foot. He is able to bend the knee without severe pain. Objective - Vitals Vitals: Last Vital Signs Temp 36.6 C 01/23/17 06:13 Pulse 49 L 01/23/17 08:37 Resp 20 01/23/17 06:13 BP 116/62 01/23/17 08:37 Pulse Ox 96 01/23/17 06:13 - Abnormal Lab Findings Abnormal Lab Findings: Abnormal Lab Results 01/22/17 01/22/17 01/22/17 Range/Units 10:43 10:44 10:50 Hct (42.0-52.0) % Plt Count (150-450) K/mm3 MPV (6.0-9.5) fl Immature Gran % (Auto) (0.001-0.429) % Monocytes % (0.0-9) % Eosinophils % (0.0-3.0) % Basophils % (0.0-1.0) % PT (9.4-11.4) Seconds INR (Anticoag Therapy) (0.90-1.10) INR Random Glucose (70-110) mg/dL Fluid WBC 4510 H 63389 H (0-1000) /uL Synovial Crystals Uric acid crystals H (NO CRYSTALS) 01/23/17 01/23/17 01/23/17 Range/Units 05:20 05:20 05:20 Hct 41.8 L (42.0-52.0) % Plt Count 131 L (150-450) K/mm3 MPV 10.7 H (6.0-9.5) fl Immature Gran % (Auto) 0.50 H (0.001-0.429) % Monocytes % 15.5 H (0.0-9) % Eosinophils % 3.6 H (0.0-3.0) % Basophils % 1.3 H (0.0-1.0) % PT 16.7 H (9.4-11.4) Seconds INR (Anticoag Therapy) 1.61 H (0.90-1.10) INR Random Glucose 111 H (70-110) mg/dL Fluid WBC (0-1000) /uL Synovial Crystals (NO CRYSTALS) - Exam Exam Narrative: MSK: LLE--> knee less swollen, still with mild effusion, mild TTP - improved from yesterday, minimal pain with gentle PROM, no erythema. Soft tissue swelling and erythema improved over lateral aspect of foot, tenderness improved , SILT, cap refill brisk Cultures: NGTD for L knee and L ankle samples Assessment/Plan Plan Narrative: 51 yo M w/ cellulitis of the R foot and gouty arthritis of R knee. - continue IV abx for cellulitis of foot - aspiration of R knee consistent with gout - continue colchicine and follow clinically for improvement - aspiration of R ankle negative - positive gram stain results from both synovial samples likely represents contaminant based on cell counts, crystal results, and clinical improvement - will continue to monitor clinically and follow cultures - Problems/Diagnosis (1) Cellulitis of right foot Problem: Acute (2) Gout flare Problem: Acute Qualifiers: Gout site: knee Laterality: right
[2017-01-23] MEDS ORDERED: VANCOMYCIN HCL LEVEL XX ONE (12:30)
[2017-01-23] MEDS: WARFARIN SODIUM 7.5 MG TABLET PO SCH (16:12)
[2017-01-23] MEDS: TAMSULOSIN HCL 0.4 MG CAP.SR.24H PO SCH (18:13)
[2017-01-24] MEDS: VANCOMYCIN HCL 2 GM in DEXTROSE 5 % IN WATER 500 ML IV SCH ×4 (01:01→12:53)
[2017-01-24 05:38] LABS: Hematocrit 43.4 % (42.0-52.0); Mean Cell Volume 82.2 fl (78-100); Mean Corpuscular Hemoglobin 28.4 pg (27-31); Mean Corpuscular Hgb Conc 34.6 g/dl (32-36); Mean Platelet Volume 10.4 fl (6.0-9.5); Neutrophil # 2.6 K/mm3 (1.3-6.0); Neutrophil % 48.5 % (42-75.0); Platelet Count 164 K/mm3 (150-450); Red Blood Count 5.28 M/mm3 (4.7-6.0); Red Cell Distribution Width 13.2 % (11.5-14.0); White Blood Count 5.4 K/mm3 (4.0-10.5)
[2017-01-24 05:45] LABS: Anion Gap 12.3 mmol/L (6.8-13.8); BUN/Creatinine Ratio 17.2 (9.0-21.6); Calcium * 9.5 mg/dL (7.9-10.9); Carbon Dioxide 27.8 mmol/L (24-32.6); Estimated Creat Clear 114.2; Potassium 4.1 mmol/L (3.4-4.6)
[2017-01-24 05:47] LABS: Prothrombin Time (Patient) 17.2 Seconds (9.4-11.4)
[2017-01-24 05:57] LABS: INR 1.65 INR (0.90-1.10)
[2017-01-24] MEDS: ENOXAPARIN SODIUM 40 MG/0.4 ML SYRG SC SCH (06:40)
[2017-01-24] MEDS: PANTOPRAZOLE SODIUM 40 MG TABLET.EC PO SCH (06:40)
--- NOTE | 2017-01-24 08:25 | PN ---
Subjective - Date and Time Seen Date: 01/24/17 - \ Time: 08:08 Subjective Narrative: Patient feeling better. Significantly less knee pain. Objective - Review of Systems Generalized/Overall Review: Denies: Chills, Fever EENTM: Reports: No Symptoms Reported Respiratory: Denies: Cough, Shortness of Breath Cardiac: Denies: Chest Pain, Edema, Palpitations Abdominal: Denies: Nausea, Vomiting Genitourinary Symptoms: Denies: Urgency, Frequency Musculoskeletal Complaints: Reports: Joint Pain - Vitals Vitals: Last Vital Signs Temp 36.8 C 01/24/17 07:20 Pulse 51 L 01/24/17 07:20 Resp 16 01/24/17 07:20 BP 124/71 01/24/17 07:20 Pulse Ox 98 01/24/17 07:20 - Abnormal Lab Findings Abnormal Lab Findings: Abnormal Lab Results 01/24/17 01/24/17 Range/Units 05:35 05:35 MPV 10.4 H (6.0-9.5) fl Immature Gran % (Auto) 0.60 H (0.001-0.429) % Monocytes % 15.6 H (0.0-9) % Eosinophils % 5.5 H (0.0-3.0) % Basophils % 1.7 H (0.0-1.0) % PT 17.2 H (9.4-11.4) Seconds INR (Anticoag Therapy) 1.65 H (0.90-1.10) INR - Exam Constitutional: Present: Alert, Oriented x3, Cooperative ENT Exam: Present: hearing grossly normal Neck: Present: supple Breasts: Present: Exam deferred Respiratory: Present: normal breath sounds, No rales, No wheezing Cardiovascular/Chest: Present: regular rate, rhythm, no JVD, no murmur Abdomen: Present: Normal bowel sounds, soft, nontender, nondistended Extremity: Present: pedal edema - trace, other - knee swelling, decreased Assessment/Plan - Problems/Diagnosis (1) Cellulitis of right foot Problem: Acute Narrative: Day # 4 IV Vanco. Foot looks better. if no deeper infection, will give 5 days of Vanco and change to oral Bactrim DS. will talk to Orthopedics. (2) Gout flare Problem: Acute Qualifiers: Gout site: knee Laterality: right Narrative: continue with Colchicine. consider probenecid vs allopurinol when less inflammed.Ortho considering Intraarticular injection of right knee. (3) BPH (benign prostatic hyperplasia) Problem: Chronic (4) Essential hypertension Problem: Chronic (5) PAF (paroxysmal atrial fibrillation) Problem: Chronic Narrative: if his BS remain controlled despite being off metfromin on this admission- consider stopping metformin and stick to diabetic diet. if so consider stopping Coumadin and going back to ASA. (6) Diabetes mellitus Problem: Acute Qualifiers: Diabetes mellitus type: type 2 Narrative: Had FBS of 141 in 03/06 and 143 in 05/07 and started on Metformin for new onset DM from IFG. His CHADS score then changed from 1 to 2 and ASA changed to coumadin. Since he lost 40 pounds his BS have been running in the low 100's but he was still taking his metformin.
[2017-01-24] MEDS: ENALAPRIL MALEATE 20 MG TABLET PO SCH (09:31)
[2017-01-24] MEDS: LACTOBACILLUS ACIDOPHILUS 100 CAP BTL PO SCH (09:31)
[2017-01-24] MEDS: METOPROLOL SUCCINATE 100 MG TABLET.SA PO SCH (09:31)
[2017-01-24] MEDS: COLCHICINE 0.6 MG TABLET PO SCH (09:32)
--- NOTE | 2017-01-24 13:29 | PN ---
Subjective - Date and Time Seen Date: 01/24/17 Subjective Narrative: Patient continuing to improve clinically. Knee pain much improved. Objective - Vitals Vitals: Last Vital Signs Temp 36.8 C 01/24/17 07:20 Pulse 51 L 01/24/17 09:31 Resp 16 01/24/17 07:20 BP 124/71 01/24/17 09:31 Pulse Ox 98 01/24/17 07:20 - Abnormal Lab Findings Abnormal Lab Findings: Abnormal Lab Results 01/24/17 01/24/17 Range/Units 05:35 05:35 MPV 10.4 H (6.0-9.5) fl Immature Gran % (Auto) 0.60 H (0.001-0.429) % Monocytes % 15.6 H (0.0-9) % Eosinophils % 5.5 H (0.0-3.0) % Basophils % 1.7 H (0.0-1.0) % PT 17.2 H (9.4-11.4) Seconds INR (Anticoag Therapy) 1.65 H (0.90-1.10) INR - Exam Exam Narrative: MSK: minimal effusion of R knee, mild TTP, mild pain with ROM, PROM improved from yesterday, erythema and swelling of R foot continues to improve, no pain with ankle motion Synovial fluid cultures from R knee and R ankle NGTD. Assessment/Plan Plan Narrative: 51 yo M w/ cellulitis of the R foot and gouty arthritis of R knee. - continue IV abx for cellulitis of foot - suggest at least 2 weeks of IV followed by oral - aspiration of R knee consistent with gout - continue colchicine and follow clinically for improvement - aspiration of R ankle negative - positive gram stain results from both synovial samples likely represents contaminant based on cell counts, crystal results, and clinical improvement - will continue to monitor clinically and follow cultures - follow up with PCP for continued gout and cellulitis management - Problems/Diagnosis (1) Cellulitis of right foot Problem: Acute (2) Gout flare Problem: Acute Qualifiers: Gout site: knee Laterality: right
[2017-01-24 15:35] VITALS: BP 109/50
--- NOTE | 2017-01-24 15:47 | DS ---
(1) Cellulitis of right foot Diagnosis(s): Ortho recommends 2 weeks of IV antibiotics. patient agustin receive his IV antibiotics on outpatient basis in the [facility] as he is wanting to go home. Problem: Acute (2) Gout flare Diagnosis(s): improved significantly Problem: Acute Qualifiers: Gout site: knee Laterality: right (3) BPH (benign prostatic hyperplasia) Problem: Chronic (4) Essential hypertension Problem: Chronic (5) PAF (paroxysmal atrial fibrillation) Problem: Chronic (6) Diabetes mellitus Diagnosis(s): diet controlled Problem: Acute Qualifiers: Diabetes mellitus type: type 2 Description of Stay: Jordi Coelho, is a 50-year-old white male, with previous medical history of hypertension, paroxysmal atrial fibrillation, diabetes mellitus, type 2, who was admitted on 01/21/2017 for swelling and redness of his right foot and right knee pain. The patient has been having swelling and redness of his right foot sinbce 11/12/2016 and has had 3 courses of antibiotics for cellulitis on an outpatient basis. Each time his foot will get better but within a few days it will swell up again get red and get painful. During the initial episode he was seen by Orhtopedics on 11/18/2016 and agrred on the diagnosis of cellulitis but could not entirely rule out Psoriatic arhtritis flare up. At that time they also wanted to add Bactrim DS to cover for MRSA but since the foot was already getting better clinically they continued with Keflex. On his third episode he was started on doxycycline and after completing 14 days and his foot was back to almost normal and he felt that he couldn't walk a mile that day. After 1-1/2 -2 days his swelling and redness with pain returned and he came back to the office but refused admission for IV antibiotics. The following day his right knee started giving him pain also and so he decided to go back to the office and be admitted. His workup on an outpatient basis showed elevated ESR, CRP but uric acid were normal. His rheumatoid factor was weakly positive. He does have a history of psoriasis and is taking Otezla as prescribed by Dermatology. [facility] foot x-ray on outpatient basis showed no acute osseous abnormality. He was then admitted and an MRI of his foot and ankle showed cellulitis but cannot entirely rule out osteomyelitis of his second and third metatarsophalangeal joint. His right knee x-ray showed trace effusion. He was started on IV Vanco and Merropenem. Colchicine was started. Orthopedic consultation was done and he was seen by Juan Amaral and agreed with cellulitis. The following day the swelling of his right knee was worst and Dr. Yancey was consulted by Dr. Landeros. He performed arthrocentesis of both the right ankle and the right knee. The right knee showed positive crystals consisitent with gout .The right ankle showed no evidence of bacterial growth. They both showed Gram positive cocci. Culture though was negative. His gout and cellulitis is clinically much better and he will be discharge on IV Vanco for another 10 days in the [facility] as recommended by Ortho as he adamantly wants to go home. . He will continue with Colchicine Procedures Performed: see notes below List Procedures: arhtrocentesisof knee and ankle, right Discharge Disposition: Home self care Disposition: Home self-care Condition: Good Discharge Activity: Activity as tolerated Discharge Diet: Consistent carbs, Low salt Referrals: Samaria Thapa MD [Primary Care Provider] - Additional Patient Instructions (free text): IV Vanco in the [facility] twice a day at 8am and 8 pm. To start 01/25/17 at 8am. Pharmacy to manage antibiotic. Follow up with PCP on Tuesday. Prescriptions (Any new or edited meds): Colchicine 0.6 mg PO DAILY #60 tablet Lactobacillus Acidophilus [Bacid] 1 cap PO BID #60 btl Vancomycin HCl in Dextrose 5 % [Vancomycin-D5w 1.25 G/250 ml] 2 gm IV BID #20 plast..bag Complete Home Medications List: Complete Home Medication List: Enalapril Maleate [Vasotec] 40 mg PO DAILY 10/10/12 Warfarin Sodium [Coumadin] 7.5 mg PO DAILY 05/19/16 Apremilast [Otezla] 30 mg PO DAILY 11/12/16 Metoprolol Succinate 200 mg PO DAILY 11/12/16 Omeprazole Magnesium [Prilosec Otc] 20 mg PO DAILY 11/12/16 Tamsulosin HCl [Flomax] 1 cap PO DAILY 11/12/16 traMADol HCL [Ultram] 50 mg PO Q6H PRN 01/21/17 Colchicine 0.6 mg PO DAILY #60 tablet 01/24/17 Lactobacillus Acidophilus [Bacid] 1 cap PO BID #60 btl 01/24/17 Vancomycin HCl in Dextrose 5 % [Vancomycin-D5w 1.25 G/250 ml] 2 gm IV BID #20 plast..bag 01/24/17
[2017-01-24] MEDS: WARFARIN SODIUM 7.5 MG TABLET PO SCH (17:35)
--- NOTE | 2017-01-25 11:59 | PROC NOTE ---
Date: 01/22/17 Surgeon: Wayne Yancey MD Pre-procedure diagnosis: Right knee pain and effusion, Right ankle pain and effusion Post-procedure diagnosis: Same Procedure: Aspiration of R knee and R ankle Anesthesia: None Specimens: Synovial fluid from R knee and R ankle for cell count, gram stain, cultures, and crystal analysis. Description of Procedure: Following a discussion of risks and benefits, the patient consented to aspiration of the R knee and R ankle. Attention was first turned to the R knee. The lateral suprapatellar area was prepped with betadyne and alcohol and a sterile 18 ga needle on a 60 mL syringe was advanced into the joint. Approximately 60 ml of yellow, hazy and blood tinged fluid was obtained. Pressure was held on the aspiration site with 4x4 gauze until hemostasis was obtained. Attention was then turned to the ankle. The anteromedial aspect of the ankle was prepped with betadyne and alcohol. A sterile 18 ga needle was advanced into the ankle joint just medial to tibialis anterior tendon and approximately 5 mL of normal appearing synovial fluid was obtained. Hemostasis was obtained with direct pressure. Both aspiration sites were dressed with sterile 4x4 gauze and tegaderm. The patient tolerated the procedure well and there were no complications.
== END 2017-01-24 17:46 | disposition home or self-care (01) | DRG 603 ==
LOC: MS 10:05
PROVIDERS: ADMIT Internal Medicine; ATTEND Internal Medicine
PROC: 0S9F3ZX Drainage of Right Ankle Joint, Percutaneous Approach, Diagnostic (ICD-10-PCS; principal; 2017-01-22)
PROC: 0S9C3ZX Drainage of Right Knee Joint, Percutaneous Approach, Diagnostic (ICD-10-PCS; 2017-01-22)
DX: L03.115 Cellulitis of right lower limb (principal); B96.89 Other specified bacterial agents as the cause of diseases classified elsewhere; M1A.9XX0 Chronic gout, unspecified, without tophus (tophi); M10.9 Gout, unspecified; I48.0 Paroxysmal atrial fibrillation; I10 Essential (primary) hypertension; R73.03 Prediabetes; N40.0 Benign prostatic hyperplasia without lower urinary tract symptoms; L40.9 Psoriasis, unspecified; Z79.01 Long term (current) use of anticoagulants; Z87.891 Personal history of nicotine dependence

== ENCOUNTER 2017-04-28 14:38 | Inpatient (IN) | payer BC ==
[~2017-04-28 14:38] MED LIST: CLINDAMYCIN PHOSPHATE 900 MG in DEXTROSE 5 % IN WATER 100 ML IV PRN; RINGER'S SOLUTION,LACTATED 1,000 ML IV PRN; ceFAZolin SODIUM 1 GM VIAL IV PRN
[2017-04-28] MEDS ORDERED: BUPIVACAINE HCL/EPINEPHRINE 10 ML VIAL IJ ONE (15:40)
[2017-04-28] MEDS ORDERED: PROMETHAZINE HCL 5 MG in DEXTROSE 5 % IN WATER 50 ML IV PRN ×2 (16:21)
[2017-04-28] MEDS ORDERED: DEXTROSE 5%-LACTATED RINGERS 1,000 ML IV PRN (16:21)
[2017-04-28] MEDS ORDERED: ZOLPIDEM TARTRATE 5 MG TABLET PO PRN (16:21)
[2017-04-28] MEDS ORDERED: diphenhydrAMINE HCL 50 MG/ML VIAL IV PRN (16:21)
[2017-04-28] MEDS ORDERED: HYDROmorphone HCL 1 MG/ML DISP.SYRIN IV PRN (16:21)
[2017-04-28] MEDS ORDERED: ONDANSETRON HCL/PF 2 MG/ML VIAL IV PRN (16:21)
[2017-04-28] MEDS ORDERED: ACETAMINOPHEN 500 MG TABLET PO PRN (16:21)
[2017-04-28] MEDS ORDERED: MAG HYDROX/ALUMINUM HYD/SIMETH 30 ML UDC PO PRN (16:21)
[2017-04-28] MEDS ORDERED: MAGNESIUM HYDROXIDE 30 ML UDC PO PRN (16:21)
[2017-04-28] MEDS ORDERED: RINGER'S SOLUTION,LACTATED 1,000 ML IV ONE (16:25)
[2017-04-28] MEDS: TAMSULOSIN HCL 0.4 MG CAP.SR.24H PO SCH (18:24)
[2017-04-28] MEDS: oxyCODONE HCL/ACETAMINOPHEN 1 TAB TABLET PO PRN (19:32)
[2017-04-28] MEDS: APREMILAST 30 MG PO SCH (20:13)
[2017-04-28] MEDS: SENNOSIDES/DOCUSATE SODIUM 1 TAB TABLET PO SCH (20:13)
[2017-04-28] MEDS: METOPROLOL TARTRATE 100 MG TABLET PO SCH (20:13)
[2017-04-29] MEDS: CLINDAMYCIN PHOSPHATE 900 MG in DEXTROSE 5 % IN WATER 100 ML IV SCH ×4 (02:47→14:58)
[2017-04-29 05:25] LABS: Hematocrit 38.4 % (42.0-52.0); Hemoglobin 13.4 gm/dL (13.5-18.0); Mean Cell Volume 82.8 fl (78-100); Mean Corpuscular Hemoglobin 28.9 pg (27-31); Mean Corpuscular Hgb Conc 34.9 g/dl (32-36); Mean Platelet Volume 11.4 fl (6.0-9.5); Platelet Count 124 K/mm3 (150-450); Red Blood Count 4.64 M/mm3 (4.7-6.0); Red Cell Distribution Width 15.1 % (11.5-14.0); White Blood Count 7.1 K/mm3 (4.0-10.5)
[2017-04-29 05:27] LABS: Prothrombin Time (Patient) 26.4 Seconds (9.4-11.4)
[2017-04-29 05:28] LABS: INR 2.54 INR (0.90-1.10)
[2017-04-29 05:29] LABS: Anion Gap 11.7 mmol/L (6.8-13.8); BUN/Creatinine Ratio 16.9 (9.0-21.6); Carbon Dioxide 28.7 mmol/L (24-32.6); Estimated Creat Clear 119.7; Potassium 4.4 mmol/L (3.4-4.6)
[2017-04-29] MEDS: PANTOPRAZOLE SODIUM 20 MG TABLET.DR PO SCH (07:01)
[2017-04-29] MEDS: oxyCODONE HCL/ACETAMINOPHEN 1 TAB TABLET PO PRN ×2 (07:02→13:35)
--- NOTE | 2017-04-29 08:17 | CONS ---
[facility] - General Date of Service: 04/29/17 Source: patient Exam Limitations: no limitations - History of Present Illness Initial Comments: Jordi is a 51 year old, white male, who was admitted on 04/28/2017 for right knee pain and swelling. 5 days [employer], the patient fell dowen and hit his right knee against the cement pavement. He had some abrasions. He then developed pain and swelling of his right knee 2 days [employer]. He started using his crutches due to the pain. He came to the hospital and his right knee was aspirated and he was admitted for concern of septic right knee. He was started on IV antibiotics and is for irrigation and drainage. He does have a history of recurrent cellulitis of his right foot and a h/o gout on his right knee. Allergies/Adverse Reactions: Allergies vancomycin Allergy (Mild, Verified 04/28/17 17:23) Hives Home Medications: Home Medications Medication Instructions Recorded Last Taken Enalapril Maleate [Vasotec] 40 mg PO DAILY 10/10/12 04/28/17 Apremilast [Otezla] 30 mg PO BID 11/12/16 Unknown Omeprazole Magnesium [Prilosec Otc] 20 mg PO DAILY 11/12/16 Unknown Tamsulosin HCl [Flomax] 0.4 mg PO DAILY 11/12/16 Unknown Metoprolol Tartrate 100 mg PO BID 03/11/17 04/28/17 HYDROcodone/ACETAMINOPHEN [[place] 1 tab PO Q4H PRN 04/28/17 Unknown 5-325] Warfarin Sodium [Coumadin] 7.5 mg PO DAILY 04/28/17 Unknown - Patient's Past Medical History Patient History - Medical: Diabetes Type 2, Other Patient History - Cardiac/Respiratory: Atrial Fibrillation, Hypertension Patient History - Cancer: No Hx of Cancer Patient History - Surgical Procedures: Colonoscopy, T & A Patient History - Other: None - Family History Father Family History - Medical: , Other Family History - Cardiac/Respiratory: No pertinent hx Family History - Cancer: Melanoma Mother Family History - Medical: Diabetes Type 2 Family History - Cardiac/Respiratory: Coronary Heart Disease Family History - Cancer: No pertinent family hx - Social History Living Situations: home Abuse History: No History of abuse Psych History: No pertinent hx Smoking Status: Never smoker Have you smoked in the past 12 months: No Do you dip or chew tobacco: No Patient requests Smoking Cessation Consult: No Initiate information on Smoking Cessation: No Alcohol Use: heavy Drug Use: none - Immunizations Immunizations Up to Date: Yes Hx Pneumococcal Vaccination: No History of Influenza Vaccine: Yes Procedures COLONOSCOPY (10/26/05) DRAINAGE OF RIGHT ANKLE JOINT, PERCUTANEOUS APPROACH, DIAGN (01/21/17) DRAINAGE OF RIGHT KNEE JOINT, PERCUTANEOUS APPROACH, DIAGN (01/21/17) LINEAR REP LID LACER (09/30/01) Medications - Medications Current Medications: Current Medications Clindamycin Phosphate 900 mg/ (Dextrose/Water) 106 mls @ 200 mls/hr IV Q12H TIA PRN Reason: Protocol Stop: 05/29/17 03:01 Last Admin: 04/29/17 02:47 Dose: 200 mls/hr Dextrose/Lactated Ringer's (Dextrose 5%-Lr) 1,000 mls @ 125 mls/hr IV .Q8H PRN PRN Reason: HYDRATION Stop: 05/28/17 16:22 Last Infusion: 04/29/17 01:45 Dose: Infused Metoprolol Tartrate (Lopressor) 100 mg PO BID [facility] Stop: 05/28/17 21:01 Last Admin: 04/28/17 20:13 Dose: 100 mg Non-Formulary Medication (Apremilast [Otezla]) 30 mg PO BID [facility] Stop: 05/28/17 21:01 Last Admin: 04/28/17 20:13 Dose: Not Given Oxycodone/Acetaminophen (Percocet 5 Mg/325 Mg) 2 tab PO Q4H PRN PRN Reason: Moderate Pain Stop: 05/28/17 16:22 Last Admin: 04/29/17 07:02 Dose: 2 tab Pantoprazole Sodium (Protonix) 20 mg PO DAILY@0700 [facility] Stop: 05/29/17 07:01 Last Admin: 04/29/17 07:01 Dose: 20 mg Senna/Docusate Sodium (Senokot-S) 2 tab PO HS [facility] Stop: 05/28/17 21:01 Last Admin: 04/28/17 20:13 Dose: 2 tab Tamsulosin HCl (Flomax) 0.4 mg PO DAILY@1900 [facility] Stop: 05/28/17 19:01 Last Admin: 04/28/17 18:24 Dose: 0.4 mg Review of Systems - Review of Systems Generalized/Overall Review: Present: Chills, Fever EENTM: Present: No Symptoms Reported Respiratory: Absent: Cough, Shortness of Breath Cardiac: Absent: Chest Pain, Palpitations Abdominal: Absent: Nausea, Vomiting Genitourinary: Absent: Urgency, Frequency Musculoskeletal: Present: Joint Pain Physical Examination - Exam Vital Signs: Vital Signs - Last Taken Temp 36.4 C L 04/29/17 06:57 Pulse 47 L 04/29/17 06:57 Resp 16 04/29/17 06:57 BP 147/91 04/29/17 06:57 Pulse Ox 99 04/29/17 06:57 O2 Oxygen Delivery Method Room Air Constitutional: Present: Alert, Oriented x3, Cooperative ENT Exam: Present: hearing grossly normal Eye Exam: bilateral eye: normal inspection, PERRL, EOMI Neck: Present: supple Breasts: Present: Exam deferred Respiratory: Present: normal breath sounds, No rales, No wheezing Cardiovascular/Chest: Present: regular rate, rhythm, no JVD, no murmur Abdomen: Present: Normal bowel sounds, soft, nondistended Extremity: Present: no calf tenderness, other - right knee wrapped in ERICKA bandage, positive blood in Hemovac - Results and Findings: Lab/Microbiology results last 24 hrs: Abnormal/Pending Laboratory Last 24 HRS 04/29/17 04/29/17 04/29/17 05:10 05:10 05:10 RBC 4.64 L Hgb 13.4 L Hct 38.4 L RDW 15.1 H Plt Count 124 L MPV 11.4 H PT 26.4 H INR (Anticoag Therapy) 2.54 H Random Glucose 165 H Culture 04/28/17 15:50 Miscellaneous Culture - Preliminary Knee - Right 04/28/17 15:50 Miscellaneous Culture - Preliminary Knee - Right - Assessments/Findings (1) Hypertension Diagnosis(s): on metoprolol and enalapril Problem: Chronic (2) History of gout Diagnosis(s): on colchicine. no mention of crystals. Uric acid added today - 4.1 Problem: Acute (3) PAF (paroxysmal atrial fibrillation) Diagnosis(s): on metoprolol and coumadin ( on hold) Problem: Chronic (4) Effusion of right knee Diagnosis(s): with h/o trauma Problem: Acute (5) Septic arthritis of knee, right Diagnosis(s): rule out infection. continue IV antibiotics. for irrigation and drainage today. rare Gram + cocci on synovial fluid- await culture. Problem: Acute Qualifiers: Septic arthritis organism: due to unspecified organism Qualified Code(s): M00.9 - Pyogenic arthritis, unspecified (6) Bradycardia Diagnosis(s): asymptomatic- likely due to BBlocker for his AFib. will monitor. Problem: Acute
[2017-04-29] MEDS: COLCHICINE 0.6 MG TABLET PO SCH (08:57)
[2017-04-29] MEDS: APREMILAST 30 MG PO SCH ×2 (08:57→20:32)
[2017-04-29] MEDS: METOPROLOL TARTRATE 100 MG TABLET PO SCH ×2 (08:58→20:31)
[2017-04-29] MEDS: ENALAPRIL MALEATE 20 MG TABLET PO SCH (08:58)
--- NOTE | 2017-04-29 12:14 | PN ---
Subjective - Date and Time Seen Date: 04/29/17 Time: 12:12 Subjective Narrative: He denies any excessive pain fevers or chills. He has no other concerns. He is feeling better than he did preop. Objective - Vitals Vitals: Last Vital Signs Temp 36.8 C 04/29/17 10:51 Pulse 60 04/29/17 10:51 Resp 18 04/29/17 10:51 BP 146/62 04/29/17 10:51 Pulse Ox 94 04/29/17 10:51 - Abnormal Lab Findings Abnormal Lab Findings: Abnormal Lab Results 04/29/17 04/29/17 04/29/17 Range/Units 05:10 05:10 05:10 RBC 4.64 L (4.7-6.0) M/mm3 Hgb 13.4 L (13.5-18.0) gm/dL Hct 38.4 L (42.0-52.0) % RDW 15.1 H (11.5-14.0) % Plt Count 124 L (150-450) K/mm3 MPV 11.4 H (6.0-9.5) fl PT 26.4 H (9.4-11.4) Seconds INR (Anticoag Therapy) 2.54 H (0.90-1.10) INR Random Glucose 165 H (70-110) mg/dL - Exam Exam Narrative: Alert and oriented 3, right lower extremity: Dressings in place, drain is in place draining bloody drainage, moving knee with mild pain, he is neurovascularly intact, no excessive swelling Assessment/Plan - Problems/Diagnosis (1) History of gout Problem: Acute (2) Hypertension Problem: Chronic (3) Atrial fibrillation Problem: Chronic Qualifiers: Atrial fibrillation type: paroxysmal Qualified Code(s): I48.0 - Paroxysmal atrial fibrillation (4) Diabetes mellitus Problem: Chronic Qualifiers: Diabetes mellitus type: type 2 (5) BPH (benign prostatic hyperplasia) Problem: Chronic (6) Essential hypertension Problem: Chronic (7) GERD (gastroesophageal reflux disease) Problem: Chronic (8) Septic arthritis of knee, right Problem: Acute Qualifiers: Septic arthritis organism: due to unspecified organism Qualified Code(s): M00.9 - Pyogenic arthritis, unspecified
[2017-04-29] MEDS: SENNOSIDES/DOCUSATE SODIUM 1 TAB TABLET PO SCH (20:31)
[2017-04-29] MEDS: TAMSULOSIN HCL 0.4 MG CAP.SR.24H PO SCH (20:32)
[2017-04-30] MEDS: CLINDAMYCIN PHOSPHATE 900 MG in DEXTROSE 5 % IN WATER 100 ML IV SCH ×4 (03:06→14:28)
[2017-04-30 05:28] LABS: Hematocrit 38.3 % (42.0-52.0); Hemoglobin 13.2 gm/dL (13.5-18.0); Mean Cell Volume 83.4 fl (78-100); Mean Corpuscular Hemoglobin 28.8 pg (27-31); Mean Corpuscular Hgb Conc 34.5 g/dl (32-36); Mean Platelet Volume 11.3 fl (6.0-9.5); Platelet Count 134 K/mm3 (150-450); Red Blood Count 4.59 M/mm3 (4.7-6.0); Red Cell Distribution Width 15.4 % (11.5-14.0); White Blood Count 11.3 K/mm3 (4.0-10.5)
[2017-04-30 05:48] LABS: Anion Gap 13.4 mmol/L (6.8-13.8); BUN/Creatinine Ratio 16.7 (9.0-21.6); Calcium * 8.9 mg/dL (7.9-10.9); Carbon Dioxide 27.8 mmol/L (24-32.6); Estimated Creat Clear 110.4; Potassium 4.2 mmol/L (3.4-4.6)
[2017-04-30] MEDS: PANTOPRAZOLE SODIUM 20 MG TABLET.DR PO SCH (07:59)
[2017-04-30] MEDS: METOPROLOL TARTRATE 100 MG TABLET PO SCH ×2 (08:00→21:00)
[2017-04-30] MEDS: ENALAPRIL MALEATE 20 MG TABLET PO SCH (08:00)
[2017-04-30] MEDS: COLCHICINE 0.6 MG TABLET PO SCH (08:01)
[2017-04-30] MEDS: APREMILAST 30 MG PO SCH ×2 (08:01→21:00)
--- NOTE | 2017-04-30 12:05 | PN ---
Subjective - Date and Time Seen Date: 04/30/17 Time: 12:04 Subjective Narrative: No issues or complaints. Knee feels better. No fevers/chills. Slept well. Objective - Vitals Vitals: Last Vital Signs Temp 36.8 C 04/30/17 11:46 Pulse 57 L 04/30/17 11:46 Resp 16 04/30/17 11:46 BP 139/72 04/30/17 11:46 Pulse Ox 97 04/30/17 11:46 - Abnormal Lab Findings Abnormal Lab Findings: Abnormal Lab Results 04/30/17 04/30/17 Range/Units 05:15 05:15 WBC 11.3 H D (4.0-10.5) K/mm3 RBC 4.59 L (4.7-6.0) M/mm3 Hgb 13.2 L (13.5-18.0) gm/dL Hct 38.3 L (42.0-52.0) % RDW 15.4 H (11.5-14.0) % Plt Count 134 L (150-450) K/mm3 MPV 11.3 H (6.0-9.5) fl Random Glucose 164 H (70-110) mg/dL - Exam Exam Narrative: A+Ox3 RLE - NVI, drains in place, exam benign Assessment/Plan - Problems/Diagnosis (1) History of gout Problem: Acute (2) Hypertension Problem: Chronic (3) Atrial fibrillation Problem: Chronic Qualifiers: Atrial fibrillation type: paroxysmal Qualified Code(s): I48.0 - Paroxysmal atrial fibrillation (4) Diabetes mellitus Problem: Chronic Qualifiers: Diabetes mellitus type: type 2 (5) BPH (benign prostatic hyperplasia) Problem: Chronic (6) Essential hypertension Problem: Chronic (7) GERD (gastroesophageal reflux disease) Problem: Chronic (8) Septic arthritis of knee, right Problem: Acute Qualifiers: Septic arthritis organism: due to unspecified organism Qualified Code(s): M00.9 - Pyogenic arthritis, unspecified Narrative: Will wait for final cultures. Continue IV antibiotics. Will restart coumadin and pharmacy to adjust
[2017-04-30] MEDS ORDERED: WARFARIN SODIUM 5 MG TABLET PO SCH (13:00)
[2017-04-30] MEDS: TAMSULOSIN HCL 0.4 MG CAP.SR.24H PO SCH (18:17)
[2017-04-30] MEDS: SENNOSIDES/DOCUSATE SODIUM 1 TAB TABLET PO SCH (21:01)
--- NOTE | 2017-04-30 23:42 | PN ---
Subjective - Date and Time Seen Date: 04/30/17 Objective - Vitals Vitals: Last Vital Signs Temp 36.4 C L 04/30/17 18:25 Pulse 60 04/30/17 21:00 Resp 18 04/30/17 18:25 BP 122/62 04/30/17 21:00 Pulse Ox 97 04/30/17 18:25 - Abnormal Lab Findings Abnormal Lab Findings: Abnormal Lab Results 04/30/17 04/30/17 Range/Units 05:15 05:15 WBC 11.3 H D (4.0-10.5) K/mm3 RBC 4.59 L (4.7-6.0) M/mm3 Hgb 13.2 L (13.5-18.0) gm/dL Hct 38.3 L (42.0-52.0) % RDW 15.4 H (11.5-14.0) % Plt Count 134 L (150-450) K/mm3 MPV 11.3 H (6.0-9.5) fl Random Glucose 164 H (70-110) mg/dL
[2017-05-01] MEDS: CLINDAMYCIN PHOSPHATE 900 MG in DEXTROSE 5 % IN WATER 100 ML IV SCH ×2 (03:40)
[2017-05-01 06:38] LABS: Prothrombin Time (Patient) 13.2 Seconds (9.4-11.4)
[2017-05-01 06:41] LABS: INR 1.27 INR (0.90-1.10)
[2017-05-01] MEDS: PANTOPRAZOLE SODIUM 20 MG TABLET.DR PO SCH (06:48)
[2017-05-01] MEDS: APREMILAST 30 MG PO SCH (08:34)
[2017-05-01] MEDS: COLCHICINE 0.6 MG TABLET PO SCH (08:34)
[2017-05-01] MEDS: METOPROLOL TARTRATE 100 MG TABLET PO SCH (08:34)
[2017-05-01] MEDS: ENALAPRIL MALEATE 20 MG TABLET PO SCH (08:34)
--- NOTE | 2017-05-01 09:59 | PN ---
Subjective - Date and Time Seen Date: 05/01/17 Time: 09:59 Subjective Narrative: feels good, denies needs. ready to go home. Objective - Review of Systems Generalized/Overall Review: Reports: No Symptoms Reported EENTM: Reports: No Symptoms Reported Respiratory: Reports: No Symptoms Reported Cardiac: Reports: No Symptoms Reported Abdominal: Reports: No Symptoms Reported Genitourinary Symptoms: Reports: No Symptoms Reported Musculoskeletal Complaints: Reports: Joint Pain Neurological: Reports: No Symptoms Reported Skin: Reports: No Symptoms Reported Endocrine: Reports: No Symptoms Reported Misc: All systems neg except as marked - Vitals Vitals: Last Vital Signs Temp 36.6 C 05/01/17 06:16 Pulse 54 L 05/01/17 08:34 Resp 18 05/01/17 06:16 BP 120/66 05/01/17 08:34 Pulse Ox 99 05/01/17 06:16 - Abnormal Lab Findings Abnormal Lab Findings: Abnormal Lab Results 05/01/17 Range/Units 06:05 PT 13.2 H (9.4-11.4) Seconds INR (Anticoag Therapy) 1.27 H (0.90-1.10) INR - Exam Constitutional: Present: Alert, Oriented x3, Cooperative, No distress ENT Exam: Present: hearing grossly normal Neck: Present: full range of motion, supple Breasts: Present: Exam deferred Respiratory: Present: lungs clear, normal breath sounds Cardiovascular/Chest: Present: normal peripheral pulses, regular rate, rhythm Abdomen: Present: soft, nontender, nondistended /Rectal: Present: Exam deferred Extremity: Present: normal inspection - left, lower extremity edema - right Skin Exam: Present: normal color, warm/dry, no cyanosis Assessment/Plan Plan Narrative: medically stable and overall doing well. okay for discharge when cleared by orthopaedics. Marcy to continue to watch INR as she has in the past. Thank you for this consult. - Problems/Diagnosis (1) Bradycardia Problem: Acute (2) History of gout Problem: Acute (3) Hypertension Problem: Chronic (4) Effusion of right knee Problem: Acute (5) Septic arthritis of knee, right Problem: Acute Qualifiers: Septic arthritis organism: due to unspecified organism Qualified Code(s): M00.9 - Pyogenic arthritis, unspecified (6) PAF (paroxysmal atrial fibrillation) Problem: Chronic
[2017-05-01 10:45] VITALS: BP 123/60
--- NOTE | 2017-05-01 13:05 | DS ---
(1) History of gout Problem: Acute (2) Hypertension Problem: Chronic (3) Atrial fibrillation Problem: Chronic Qualifiers: Atrial fibrillation type: paroxysmal Qualified Code(s): I48.0 - Paroxysmal atrial fibrillation (4) Diabetes mellitus Problem: Chronic Qualifiers: Diabetes mellitus type: type 2 (5) BPH (benign prostatic hyperplasia) Problem: Chronic (6) Essential hypertension Problem: Chronic (7) GERD (gastroesophageal reflux disease) Problem: Chronic (8) Septic arthritis of knee, right Problem: Acute Qualifiers: Septic arthritis organism: due to unspecified organism Qualified Code(s): M00.9 - Pyogenic arthritis, unspecified Description of Stay: Mr. Coelho is 51-year-old gentleman who fell while supratherapeutic on his Coumadin and developed a hemarthrosis of his right knee. He subsequently developed increasing fevers chills and pain. An aspirate was concerning for infection and thus he urgently went to the operating room for irrigation and debridement. He was admitted postoperatively for IV antibiotics and monitoring pending the outcomes of the cultures. Cultures ended up culturing negative however clinically there is concern due to a history as well as likely acute septic joint. He is otherwise doing well. His drain was discontinued on postop day 2. His labs were stable and he remained afebrile. Examination of the right knee revealed improved effusion, calor, and erythema. Procedures Performed: see notes below List Procedures: Arthroscopic right knee irrigation and debridement Discharge Disposition: Home self care Disposition: Home self-care Condition: Good Discharge Activity: Activity as tolerated, Weight bearing Discharge Diet: Consistent carbs Referrals: Samaria Thapa MD [Primary Care Provider] - Prescriptions (Any new or edited meds): oxyCODONE HCL/ACETAMINOPHEN [Percocet 5 MG/325 MG] 2 tab PO Q4H PRN #30 tablet PRN Reason: Moderate Pain Sulfamethoxazole/Trimethoprim [Bactrim Ds] 1 tab PO BID #20 tab Complete Home Medications List: Complete Home Medication List: Enalapril Maleate [Vasotec] 40 mg PO DAILY 10/10/12 Apremilast [Otezla] 30 mg PO BID 11/12/16 Omeprazole Magnesium [Prilosec Otc] 20 mg PO DAILY 11/12/16 Tamsulosin HCl [Flomax] 0.4 mg PO DAILY 11/12/16 Colchicine 0.6 mg PO DAILY #60 tablet 01/24/17 Metoprolol Tartrate 100 mg PO BID 03/11/17 Warfarin Sodium [Coumadin] 7.5 mg PO DAILY 04/28/17 Sulfamethoxazole/Trimethoprim [Bactrim Ds] 1 tab PO BID #20 tab 05/01/17 oxyCODONE HCL/ACETAMINOPHEN [Percocet 5 MG/325 MG] 2 tab PO Q4H PRN #30 tablet 05/01/17
== END 2017-05-01 13:45 | disposition home or self-care (01) | DRG 489 ==
LOC: AMB 14:38 → INTOOBSV 15:22 → MS 15:22 → UNDOADMOB 15:22 → OBSVTOIN 16:21 → MS 16:21 → OBSVTOIN 04-29 08:53 → INTOOBSV 04-29 08:53
PROVIDERS: ADMIT Orthopaedic Surgery; ATTEND Orthopaedic Surgery
PROC: 0S9C00Z Drainage of Right Knee Joint with Drainage Device, Open Approach (ICD-10-PCS; 2017-04-28)
PROC: 0SBC0ZZ Excision of Right Knee Joint, Open Approach (ICD-10-PCS; principal; 2017-04-28 15:00)
DX: M00.9 Pyogenic arthritis, unspecified (principal); I10 Essential (primary) hypertension; E11.9 Type 2 diabetes mellitus without complications; K21.9 Gastro-esophageal reflux disease without esophagitis; I48.0 Paroxysmal atrial fibrillation; Z79.01 Long term (current) use of anticoagulants

== ENCOUNTER 2017-06-29 06:11 | Day surgery (SDC) | payer BC ==
[~2017-06-29 06:11] MED LIST changes: -CLINDAMYCIN PHOSPHATE 900 MG in DEXTROSE 5 % IN WATER 100 ML IV PRN; -ceFAZolin SODIUM 1 GM VIAL IV PRN
[2017-06-29] MEDS ORDERED: RINGER'S SOLUTION,LACTATED 1,000 ML IV PRN (07:53)
[2017-06-29 08:53] VITALS: BP 132/72
--- NOTE | 2017-06-29 17:38 | OR ---
Operative Report - Dictated Report Narrative: OPERATIVE REPORT DATE OF OPERATION: 06/29/2017 PREOPERATIVE DIAGNOSIS: History of colon polyp. No recent dedicated colon studies POSTOPERATIVE DIAGNOSIS: 3 mm area of polypoid change at 40 cm (pathology pending) otherwise normal colonoscopy to the cecum OPERATION: Colonoscopy with hot biopsy forceps polypectomy at 40 cm SURGEON: Lalitha Pressley MD ANESTHESIA: BETH Irving CRNA INDICATIONS FOR PROCEDURE: Patient is a 51-year-old male referred by Dr Thapa. The patient had a tubular adenoma removed in 2001 and a hyperplastic polyp removed in 2003. Subsequent exam in 2005 was normal. He is currently asymptomatic. There is no family history of colon cancer. FINDINGS: 3 mm area of polypoid change at 40 cm otherwise normal colonoscopy to the cecum NARRATIVE OF PROCEDURE: The patient was identified in the holding area, and prior to the administration of anesthetic, a multidisciplinary timeout was observed. With the patient in the left lateral position and after the administration of intravenous sedation, the perineum was inspected. There was no evidence of pilonidal disease or skin breakdown. The external appearance of the anus was normal. Sphincter tone was good. The flexible fiberoptic colonoscope was inserted into the rectum which was insufflated with air. The rectal mucosa and submucosal vascular pattern appeared normal, the prep was seen to be complete. The scope was advanced through the sigmoid colon, up the descending colon, and around the splenic flexure where the triangular haustral architecture of the transverse colon was seen. The scope was advanced across the transverse colon, around the hepatic flexure to the cecum, where the confluence of tenia and the ileocecal valve were identified. The mucosa at this level appeared normal. The scope was then slowly withdrawn in a circular fashion so that all aspects of colonic mucosa were inspected. The colon was slightly capacious in character but normal in course. The haustral architecture appeared well preserved throughout with no evidence of external compression. The mucosa and submucosal vascular pattern appeared normal, specifically there was no gross evidence to suggest colitis or inflammatory bowel disease and no AV malformations were seen. No diverticulosis was demonstrated. At 40 cm a 3 mm area of polypoid change was encountered. This was only able to be addressed tangentially by cautery application which completely destroyed the polyp. Subsequently a small fragment was removed and submitted for pathology. The polypectomy site appeared to be completely hemostatic The scope was gradually withdrawn to the level of the rectum. As much insufflated air as possible was removed. The scope was withdrawn from the patient and the procedure terminated. The patient tolerated the anesthetic and procedure well without complication and was transferred back to the ambulatory surgery area awake and in stable condition. The patient remained stable throughout a period of postoperative observation. He denied abdominal discomfort, was able to tolerate by mouth intake, and was up without assistance. I shared the operative findings with the patient and he was given copies of the photographs which appear in the medical record. He was discharged home with instructions not to engage in hazardous activity today, but may resume normal activity tomorrow, and advance diet as tolerated. He is to continue those medications as listed in the history and physical exam. I made arrangements to contact him with the biopsy report and will make additional recommendations for treatment and follow-up based upon those results. Reviewed and electronically signed
== END 2017-06-29 06:12 | disposition home or self-care (01) ==
LOC: AMB 06:11
PROVIDERS: ATTEND Surgery
PROC: 0DBE8ZX Excision of Large Intestine, Via Natural or Artificial Opening Endoscopic, Diagnostic (ICD-10-PCS; principal; 2017-06-29 07:00)
DX: Z12.11 Encounter for screening for malignant neoplasm of colon (principal); K63.5 Polyp of colon; I10 Essential (primary) hypertension; I48.91 Unspecified atrial fibrillation; Z87.891 Personal history of nicotine dependence; Z68.30 Body mass index [BMI] 30.0-30.9, adult